=== PATIENT | female | born 1955 | race Caucasian/White ===

== ENCOUNTER → 2018-08-20 14:09 | Outpatient (CLI) | payer OTHER, SELFPAY ==
[2017-04-01 22:01] VITALS: BMI 29.9
--- NOTE | 2018-08-20 14:18 | RAD_ITS ---
STUDY: X-RAY - THORACIC SPINE REASON FOR EXAM: Female, 63 years old. No known recent injury. Chronic thoracic and lumbar pain. Recent worsening. TECHNIQUE: 3 view(s) of the thoracic spine were obtained. COMPARISON: None. FINDINGS: Normal kyphosis of the thoracic spine. There is no substantial scoliosis. There is demineralization of the thoracic spine with endplate spondylosis. There is multilevel disc space narrowing of the thoracic spine. There is no evidence of acute fracture or loss of vertebral axial height. The soft tissue structures are unremarkable. RAD/Thoracic Spine 2 Views IMPRESSION: Osteopenia and degenerative changes of the thoracic spine. Electronically Signed: Domenico Gordon DO at 20:13 EST Tel [phone], Service support ,
--- NOTE | 2018-08-20 14:25 | RAD_ITS ---
STUDY: X-RAY - LUMBAR SPINE REASON FOR EXAM: Female, 63 years old. Chronic thoracic and lumbar pain, recently worsening. TECHNIQUE: 3 view(s) of the lumbar spine were obtained. COMPARISON: Thoracic spine, August 20, 2018. FINDINGS: Normal lumbar lordosis. There is no substantial scoliosis. There is anterolisthesis of L4 on L5 of 5 mm. The alignment is otherwise preserved. There is multilevel endplate spondylosis of the lumbar vertebrae. There is multi-level degenerative disc disease with multi-level disc space narrowing. There is no evidence of acute fracture or loss of vertebral axial height. The soft tissue structures are unremarkable. RAD/Lumbar Spine 2 or 3 Views IMPRESSION: Degenerative changes of the lumbar spine. Electronically Signed: Domenico Gordon DO at 20:14 EST Tel [phone], Service support ,
== END ==
PROVIDERS: Referring Provider Anesthesiology Pain Medicine; Visit Provider Anesthesiology Pain Medicine
DX: M54.9 Dorsalgia, unspecified (principal)
CPT/HCPCS: 72070; 72100

== ENCOUNTER → 2018-10-02 16:04 | Outpatient (CLI) | payer OTHER, SELFPAY ==
--- NOTE | 2018-10-02 16:45 | MRI_ITS ---
STUDY: MRI LUMBAR SPINE WITHOUT CONTRAST REASON FOR EXAM: Female, 63 years old. Low back pain TECHNIQUE: Standardized fat and water weighted pulse sequences were obtained in the sagittal and axial planes. COMPARISON: X-ray 08/20/2018. FINDINGS: T12-L1: Normal endplates. Normal disc height, hydration and morphology. Normal bilateral facet joints. Normal central canal and bilateral lateral recesses. Normal bilateral intervertebral neural foramina. Normal lumbar lordosis. There is no substantial scoliosis. Normal conus medullaris that terminates at the L1 level. L1-2: Fatty endplate changes are noted. There is marked disc space narrowing. There is a 5 mm right paracentral disc or spondylotic protrusion measuring 5 mm. Alternatively, this may represent a small calcific fragment, less likely hemorrhage. This effaces the right lateral recess. Normal bilateral facet joints. Normal bilateral intervertebral neural foramina. L2-3: Normal endplates. Disc dehydration. There is a small right paracentral and inferior foraminal disc protrusion effacing the right lateral recess and inferior neural foramen. No evidence of foraminal stenosis. Normal bilateral facet joints. Normal central canal and bilateral lateral recesses. L3-4: Normal endplates. Disc dehydration. Mild facet hypertrophy. Normal central canal and bilateral lateral recesses. Normal bilateral intervertebral neural foramina. L4-5: Normal endplates. Disc dehydration and mild disc space narrowing. There is 3 mm anterolisthesis. No spondylolysis. There is moderate facet hypertrophy. There is mild bilateral foraminal encroachment due to spurring and facet hypertrophy. L5-S1: Normal endplates. Disc dehydration. There is a small, central disc protrusion touching the traversing S1 nerve roots. No canal stenosis. Normal bilateral facet joints. Normal bilateral lateral recesses. Normal bilateral intervertebral neural foramina. Normal visualized sacral ala. Normal visualized paraspinous soft tissue structures. MRI/Spine Lumbar (Routine) IMPRESSION: 1. L1-2 right paracentral spondylotic or disc protrusion, effacing the right lateral recess. 2. L2-3 disc protrusion effacing the right lateral recess and inferior neural foramen. 3. L5-S1 disc protrusion touching the traversing nerve roots. 4. Mild L4-5 anterolisthesis. 5. Mild L4-5 foraminal encroachment. Electronically Signed: Milagros Dominguez MD at 21:27 EDT Tel , Service support ,
== END ==
PROVIDERS: Family Provider Family Medicine; PCP Family Medicine; Referring Provider Anesthesiology Pain Medicine; Visit Provider Anesthesiology Pain Medicine
DX: M54.9 Dorsalgia, unspecified (principal); M79.606 Pain in leg, unspecified
CPT/HCPCS: 72148

== ENCOUNTER → 2019-07-29 15:39 | Outpatient (CLI) | payer OTHER, SELFPAY ==
[2019-07-29 17:50] LABS: Amphetamine Urine VISTA NEGATIVE (<1000 ng/mL); Barbiturate Urine VISTA NEGATIVE (< 200 ng/mL); Benzodiazepine Urine VISTA NEGATIVE (< 200 ng/mL); Cocaine Urine VISTA NEGATIVE (< 300 ng/mL); Ecstacy Urine VISTA POSITIVE (< 500 ng/mL); Methadone Urine VISTA NEGATIVE (< 300 ng/mL); PCP Urine VISTA NEGATIVE (< 25 ng/mL); THC Urine VISTA NEGATIVE (< 50 ng/mL); Vista UDS pH Range 6
== END ==
PROVIDERS: Family Provider Family Medicine; PCP Family Medicine; Referring Provider Anesthesiology Pain Medicine; Visit Provider Anesthesiology Pain Medicine
DX: F11.20 Opioid dependence, uncomplicated (principal)
CPT/HCPCS: 80307

== ENCOUNTER → 2020-09-02 13:08 | Outpatient (CLI) | payer OTHER, SELFPAY ==
[2017-04-01 22:01] VITALS: BMI 29.9
[2020-09-02 14:31] LABS: Vista UDS pH Range 6
[2020-09-02 14:39] LABS: Amphetamine Urine VISTA NEGATIVE (<1000 ng/mL); Barbiturate Urine VISTA NEGATIVE (< 200 ng/mL); Benzodiazepine Urine VISTA NEGATIVE (< 200 ng/mL); Cocaine Urine VISTA NEGATIVE (< 300 ng/mL); Ecstacy Urine VISTA POSITIVE (< 500 ng/mL); Methadone Urine VISTA NEGATIVE (< 300 ng/mL); PCP Urine VISTA NEGATIVE (< 25 ng/mL); THC Urine VISTA NEGATIVE (< 50 ng/mL)
== END ==
LOC: LABSPEC 13:10 → LAB 13:11
PROVIDERS: PCP Family Medicine; Referring Provider Anesthesiology Pain Medicine; Visit Provider Anesthesiology Pain Medicine
DX: F11.20 Opioid dependence, uncomplicated (principal)
CPT/HCPCS: 80307

== ENCOUNTER 2020-09-24 10:42 | Outpatient (RCR) | payer OTHER, SELFPAY ==
[2017-04-01 22:01] VITALS: BMI 29.9
[2020-09-24] MEDS: COVID-19 VACC, MRNA(PFIZER)/PF 30 MCG/0.3 ML SYRINGE IM (18:12)
[2020-10-15] MEDS: COVID-19 VACC, MRNA(PFIZER)/PF 30 MCG/0.3 ML SYRINGE IM (18:06)
== END 2020-12-22 23:59 ==
LOC: IMMUN 10:42
PROVIDERS: Visit Provider Family Medicine
DX: Z23 Encounter for immunization (principal)
CPT/HCPCS: 0001A; 0002A; 91300

== ENCOUNTER 2021-09-23 12:07 | Outpatient (CLI) | payer MEDICARE, SELFPAY ==
[2021-09-23 13:44] LABS: Amphetamine Urine VISTA NEGATIVE (<1000 ng/mL); Barbiturate Urine VISTA NEGATIVE (< 200 ng/mL); Benzodiazepine Urine VISTA NEGATIVE (< 200 ng/mL); Cocaine Urine VISTA NEGATIVE (< 300 ng/mL); Ecstacy Urine VISTA POSITIVE (< 500 ng/mL); Methadone Urine VISTA NEGATIVE (< 300 ng/mL); PCP Urine VISTA NEGATIVE (< 25 ng/mL); THC Urine VISTA NEGATIVE (< 50 ng/mL); Vista UDS pH Range 5
== END 2021-09-23 23:59 | disposition home or self-care (01) ==
PROVIDERS: Referring Provider Anesthesiology Pain Medicine; Visit Provider Anesthesiology Pain Medicine
DX: F11.20 Opioid dependence, uncomplicated (principal)
CPT/HCPCS: 80307

== ENCOUNTER → 2022-06-02 | Outpatient (CLI) | payer MEDICARE, SELFPAY ==
--- NOTE | 2022-06-02 12:40 | RAD_ITS ---
INDICATION: M51.37 EXAMINATION/TECHNIQUE: X-RAY - XR Spine Lumbar 2 or 3 Views COMPARISON: 08/20/2018 FINDINGS: VERTEBRAE: Preserved vertebral body height. No acute fracture. Stable 6 mm spondylolisthesis at L4-5. Preservation of the normal lumbar lordosis. DISCS: Stable degenerative disc space narrowing L1-2 and L4-5. INCLUDED ABDOMEN: Included bowel gas pattern is non-obstructive. RAD/Lumbar Spine 2 or 3 Views IMPRESSION: Stable degenerative disc disease. No acute bony abnormality. Electronically Signed: Brodie Lam MD at 19:27 EST ,
== END | disposition home or self-care (01) ==
LOC: RAD 12:36
PROVIDERS: Referring Provider Anesthesiology Pain Medicine; Visit Provider Anesthesiology Pain Medicine
DX: M51.37 Other intervertebral disc degeneration, lumbosacral region (principal)
CPT/HCPCS: 72100

== ENCOUNTER → 2022-10-03 | Outpatient (CLI) | payer MEDICARE, SELFPAY ==
--- NOTE | 2022-10-03 12:11 | MRI_ITS ---
PROCEDURE: LUMBAR SPINE MRI WITHOUT CONTRAST COMPARISONS: 10/02/2018 CLINICAL INDICATION: RADICULOPATHY LEFT TECHNIQUE: Noncontrast lumbosacral spine MRI study was performed multiple sequences in sagittal and axial planes. FINDINGS: Slight L4-5 anterolisthesis is unchanged. Alignment of the lumbosacral spine is otherwise normal. Normal vertebral marrow signal. Normal partially visualized sacroiliac joints. The conus medullaris terminates at L1-2. No abnormal signal within the visualized cord. L1-L2: Normal disc height and morphology. Normal spinal canal and neuroforamina. L2-L3: Normal disc height and morphology. Normal spinal canal and neuroforamina. L3-L4: Disc bulge. Mild bilateral neural foraminal stenosis. L4-L5: Normal disc height and morphology. Facet arthrosis with moderate right and mild left neural foraminal stenosis. Both traversing L5 nerve roots are crowded in the lateral recesses. L5-S1: Disc bulge Normal spinal canal and neuroforamina. Mild paraspinous muscle fatty infiltration. 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 Bilateral neural foraminal stenosis at L3-4 and L4-5. Electronically Signed: Kevin Cartwright MD at 16:17 EDT ,
== END | disposition home or self-care (01) ==
LOC: MRI 12:06
PROVIDERS: Referring Provider Anesthesiology Pain Medicine; Visit Provider Anesthesiology Pain Medicine
DX: M54.16 Radiculopathy, lumbar region (principal)
CPT/HCPCS: 72148

== ENCOUNTER → 2023-03-06 | Outpatient (CLI) | payer MEDICARE, SELFPAY ==
[2023-03-06 14:40] LABS: Amphetamine Urine VISTA NEGATIVE (<1000 ng/mL); Barbiturate Urine VISTA NEGATIVE (< 200 ng/mL); Benzodiazepine Urine VISTA NEGATIVE (< 200 ng/mL); Cocaine Urine VISTA NEGATIVE (< 300 ng/mL); Ecstacy Urine VISTA POSITIVE (< 500 ng/mL); Methadone Urine VISTA NEGATIVE (< 300 ng/mL); PCP Urine VISTA NEGATIVE (< 25 ng/mL); THC Urine VISTA NEGATIVE (< 50 ng/mL); Vista UDS pH Range 5
== END | disposition home or self-care (01) ==
PROVIDERS: Referring Provider Anesthesiology Pain Medicine; Visit Provider Anesthesiology Pain Medicine
DX: F11.20 Opioid dependence, uncomplicated (principal)
CPT/HCPCS: 80307

== ENCOUNTER → 2023-12-28 | Outpatient (CLI) | payer MEDICARE, SELFPAY ==
[2023-12-28 16:37] LABS: Amphetamine Urine VISTA NEGATIVE (<1000 ng/mL); Barbiturate Urine VISTA NEGATIVE (< 200 ng/mL); Benzodiazepine Urine VISTA NEGATIVE (< 200 ng/mL); Cocaine Urine VISTA NEGATIVE (< 300 ng/mL); Ecstacy Urine VISTA POSITIVE (< 500 ng/mL); Methadone Urine VISTA NEGATIVE (< 300 ng/mL); PCP Urine VISTA NEGATIVE (< 25 ng/mL); THC Urine VISTA NEGATIVE (< 50 ng/mL); Vista UDS pH Range 6
== END | disposition home or self-care (01) ==
LOC: OLS.ABSOLU 12:50 → LAB 12-29 09:59
PROVIDERS: PCP Anesthesiology Pain Medicine; Visit Provider Anesthesiology Pain Medicine
DX: F11.20 Opioid dependence, uncomplicated (principal)
CPT/HCPCS: 80307

== ENCOUNTER 2024-07-11 12:51 | Emergency (ER) | payer MEDICARE, SELFPAY ==
[2024-07-11 12:56] VITALS: BP 139/98; PULSE 86; RESP 16; TEMP 36.7; O2SAT 95
[2024-07-11 14:52] VITALS: PULSE 75; RESP 18; O2SAT 92
--- NOTE | 2024-07-11 15:09 | EDS_ITS ---
HPI History of Present Illness Chief Complaint: Weakness Informant: patient Narrative Narrative: Increasing fatigue, decreased appetite, myalgias for past 5 days. No cough. No fevers or chills. No vomiting diarrhea. No urinary symptoms. Patient on medications for back pain along with depression medications. No new medications were started. No sick contacts. She states she has been sleeping 21 hours a day. Patient came in by private vehicle.Patient is drinking fluids at home. [facility] Medical History Appendicitis Home Medications ?Medication ?Instructions ?Recorded ?Last Taken ?Type duloxetine 30 mg capsule,delayed 30 mg PO DAILY 01/05/23 Unknown History release (Cymbalta) oxycodone myristate 18 mg capsule 18 mg PO BID 01/05/23 Unknown History sprinkle extended release 12hr(DON'T CRUSH) (Xtampza ER) tizanidine 4 mg tablet 4 mg PO HS 01/05/23 Unknown History tramadol 100 mg tablet 100 mg PO DAILY PRN 01/05/23 Unknown History levothyroxine 125 mcg tablet 125 mcg PO DAILY #30 tabs 07/11/24 Unknown Rx (Synthroid) Allergy/AdvReac Type Severity Reaction Status Date / Time erythromycin base Allergy Hives Verified 07/11/24 12:56 Family History Grandmother Kidney disease Other Cancer Surgical History History of appendectomy History of section Social History Smoking Status: Current every day smoker tobacco type: cigarettes alcohol intake: never what type of physical activity do you participate in: none ROS ROS ED Constitutional Constitutional ED: Reports other Details: Fatigue ; Denies chills, fever(s) or sweats ENT ENT ED: Denies sore throat Cardiovascular Cardiovascular: Denies chest pain, leg edema, palpitations or racing heartbeat Respiratory/Chest Respiratory/Chest: Denies cough, dyspnea or dyspnea on exertion Gastrointestinal Gastrointestinal: Denies abdominal pain, diarrhea, nausea or vomiting Genitourinary Genitourinary ED: Denies dysuria, hematuria or urinary frequency Musculoskeletal Musculoskeletal: Reports myalgias; Denies back pain, extremity pain or neck pain Integumentary Denies rash or wounds Neurologic Neurologic: Denies headache(s), paresthesias or weakness EXAM Physical Exam Const Vital Signs: 07/11/24 12:56 07/11/24 14:12 07/11/24 14:52 Temperature 98.1 F Temperature Source Oral Pulse Rate 86 75 Respiratory Rate 16 18 Respiratory Effort Normal Non-Labored Respiratory Pattern Normal Blood Pressure 139/98 H Blood Pressure Mean 111 Pulse Ox 95 92 Oxygen Delivery Method Room Air Room Air 07/11/24 16:00 07/11/24 18:00 07/11/24 18:39 Temperature Temperature Source Pulse Rate 74 75 73 Respiratory Rate 18 18 Respiratory Effort Respiratory Pattern Blood Pressure Blood Pressure Mean Pulse Ox 92 92 95 Oxygen Delivery Method Room Air Room Air Positive well nourished and well developed General Appearance ED: well developed and NAD HEENT Reports dry mucous membranes normocephalic and atraumatic Mouth ED: Yes dry mucous membranes Mouth: dry mucous membranes Eyes General Eye ED: Yes normal appearance of both eyes Neck full ROM Chest Wall Chest: Negative for tenderness Resp normal respiratory effort and normal air movement Effort and Inspection: symmetric chest movement; Negative for respiratory distress Cardio regular rate, regular rhythm and no murmurs Peripheral Pulses: pulses 2+ throughout GI normal to inspection, nondistended, normoactive bowel sounds and non-tender Palpation: Negative for guarding or rebound tenderness present Extremity normal to inspection General Extremety ED: Negative for edema or tenderness General Extremity: Negative for edema Neuro oriented x3 and no sensory deficits noted Sensorium / Orientation: awake and alert Skin no rashes or lesions noted and no wounds MDM MDM MDM Narrative Medical decision making narrative: Interventions / MDM: Differential diagnosis: Hypothyroidism, fatigue, weakness Diagnosis considered but do not suspect: UTI with culture pending My EKG interpretation: N/A Imaging independently reviewed and interpreted by myself: N/A External documents reviewed: N/A Test considered but not ordered:N/A ED course: Vital signs stable. Reports increased fatigue myalgias. Will check basic labs thyroid screening UA. COVID flu and RSV ordered. COVID, flu, RSV negative. Hemoglobin 2.9 white count 8.5. Creatinine 1.4 no old for comparison she is tolerating oral fluids. TSH returned at 141. Sent for free T4 levels. Urine noted leukocytes 25, 2+ bacteria she is asymptomatic and sent for urine culture. 181: T4 returned low at 0.1. Discussed with patient slightly hypothyroid, her symptoms are last week. She started on Synthroid 125 mcg weight-based. First dose in the ED. She does not have a PCP. She is given a month supply, discussed need to follow-up with primary care doctor recheck labs possible increasing her medications. She understands and agrees with plan. Discussed if urine culture returns positive should be contacted for treatment. All questions were answered. Re-evaluation: stable Disposition discussed with patient/family/significant other: Patient Case discussed with consulting clinician: N/A This note was generated with [employer] dictation software. It may contain incorrect words, spelling, and punctuation that were not noted in checking the note before signing. Lab Data Attestation: I reviewed the patient's lab results. Labs: Laboratory Results - last 24 hr 07/11/24 07/11/24 15:02 15:25 WBC 8.5 RBC 4.57 Hgb 13.9 Hct 42.9 MCV 93.9 MCH 30.4 MCHC 32.4 RDW Std Deviation 52.8 H RDW Coeff of [place] 15.2 H Plt Count 221 MPV 10.7 Immature Gran % (Auto) 0.400 Neut % (Auto) 70.2 H Lymph % (Auto) 23.0 [place] % (Auto) 3.9 Eos % (Auto) 1.8 Baso % (Auto) 0.7 Absolute Neuts (auto) 6.0 Absolute Lymphs (auto) 1.95 Nucleated RBC % 0 Sodium 139 Potassium 3.4 L Chloride 104 Carbon Dioxide 31.0 Anion Gap 4 L BUN 12 Creatinine 1.40 H Est GFR (MDRD) Af Amer 48 L Est GFR (MDRD) Non-Af 40 L BUN/Creatinine Ratio 8.6 L Glucose 84 Calcium 9.2 TSH 141.000 H Free T4 0.10 L Urine Color Yellow Urine Clarity Cloudy Urine pH 6.0 Ur Specific [place] 1.020 Urine Protein 30 H Urine Glucose (UA) Normal Urine Ketones 150 A* Urine Occult Blood Negative Urine Nitrite Negative Urine Bilirubin 1 H Urine Urobilinogen 4 H Ur Leukocyte Esterase 25 H Urine RBC 0 SEEN Urine WBC 0-5 SEEN Ur Squamous Epith Cells 0-5 SEEN Ur Renal Epithelial Cell 0-5 SEEN Urine Bacteria 2+ Urine Mucus 0 SEEN Discharge Plan Triage Chief Complaint: Weakness ED Provider: Rico Bernabe Dx/Rx/DC Orders Clinical Impression: Hypothyroidism, Weakness, Fatigue Instructions: ED Hypothyroidism Prescriptions: New levothyroxine [Synthroid] 125 mcg tablet 125 mcg PO DAILY Qty: 30 0RF No Action tizanidine 4 mg tablet 4 mg PO HS tramadol 100 mg tablet 100 mg PO DAILY PRN Xtampza ER 18 mg cap,sprinkl,ER12hr(DONT CRUSH) 18 mg PO BID Rx Instructions: must administer with a meal/food duloxetine [Cymbalta] 30 mg capsule,delayed release(DR/EC) 30 mg PO DAILY Primary Care Provider: Mainor Wang Referrals: Mainor Wang MD [Primary Care Provider] - Sayra Hartley MD [Med Staff - [employer]] - 1-2 Weeks Activity Restrictions/Additional Instructions: TSH 141, T4 level at 0.10. Take thyroid medicine as prescribed. You need to follow-up with a primary care doctor to continue medication possibly increase medication and this. You will be contacted your if your urine culture returns positive for antibiotics. Print Language: Ukrainian Disposition Disposition: Home, Self Care Discharge Date/Time: 07/11/24 18:40
[2024-07-11 15:31] LABS: Absolute Lymphocyte Count 1.95 X10^3/uL (0.83-4.51); Basophil# 0.06 X10^3/uL; Basophil% 0.7 % (0-1); Eosinophil# 0.15 X10^3/uL; Eosinophils% 1.8 % (0-5); Hematocrit 42.9 % (37-47); Hemoglobin 13.9 g/dL (12.0-15.0); Lymphocyte # 1.95 X10^3/ul (0.83-4.51); Mean Corp Hgb Conc 32.4 g/dL (32-36); Mean Corpuscular Hgb 30.4 pg (27.0-32.0); Mean Corpuscular Volume 93.9 fL (81-99); Mean Platelet Vol. 10.7 fl (6.2-12.0); Monocyte# 0.33 X10^3/uL; Monocyte% 3.9 % (0-10); NRBC Flagged by Analyzer 0 % (0-5); Neutrophil # 5.95 X10^3/uL (2.7-7.7); Neutrophil % 70.2 % (47-70); Platelet Count 221 K/mm3 (150-450); RBC Distribution Width CV 15.2 % (11.6-14.6); RBC Distribution Width SD 52.8 fl (35.1-43.9); Red Blood Count 4.57 M/mm3 (4.2-5.4); White Blood Count 8.5 K/mm3 (4.4-11.0)
[2024-07-11 15:39] LABS: Mucous, Urine 0 SEEN /hpf (<or=2+); Red Blood Cells-Urine 0 SEEN /hpf (0-5)
[2024-07-11 15:45] LABS: Color, Urine Yellow (Yellow); Glucose, Dipstick Normal (Normal); Leukocyte Esterase-Dipstick 25 /ul (Negative); Nitrite-Dipstick Negative (Negative); Occult Blood-Urine Negative /ul (Negative); Protein-Dipstick 30 mg/dl (Negative); Urine Clarity Cloudy (Clear); Urine Urobilinogen 4 mg/dl (Normal)
[2024-07-11 16:00] VITALS: PULSE 74; RESP 18; O2SAT 92
[2024-07-11 16:05] LABS: Urine Bilirubin Dipstick 1 mg/dL (Negative)
[2024-07-11 16:07] LABS: Ketone-Dipstick 150 mg/dl (Negative)
[2024-07-11 16:09] LABS: White Blood Cells 0-5 SEEN /hpf (0-5)
[2024-07-11 16:10] LABS: Bacteria 2+ /hpf (None Seen); Renal Epithelial Cells 0-5 SEEN /hpf (0-5); Squamous Epithelial Cells - UA 0-5 SEEN /hpf (5-10)
[2024-07-11 16:35] LABS: Anion Gap 4 (5-15); BUN 12 mg/dL (7-18); BUN/Creat Ratio 8.6 RATIO (10-20); Calcium,Total 9.2 mg/dL (8.5-10.1); Chloride 104 mmol/L (98-107); EST Glomerular Filtration Rate 40 mL/min (>60); Est Glom Filt Rate - Afr Amer 48 mL/min (>60); Glucose 84 mg/dL (74-106); Potassium 3.4 mmol/L (3.5-5.1); Sodium Level 139 mmol/L (136-145)
[2024-07-11 17:28] VITALS: BMI 27.4
[2024-07-11 18:00] VITALS: PULSE 75; O2SAT 92
[2024-07-11] MEDS: Levothyroxine 125 MCG Tablet PO (18:35)
[2024-07-11 18:39] VITALS: PULSE 73; RESP 18; O2SAT 95
== END 2024-07-11 18:40 | disposition home or self-care (01) ==
PROVIDERS: Emergency Provider Emergency Medicine; PCP Anesthesiology Pain Medicine; Visit Provider Emergency Medicine
DX: E03.9 Hypothyroidism, unspecified (principal); R53.1 Weakness; M54.9 Dorsalgia, unspecified; M79.10 Myalgia, unspecified site; F32.A Depression, unspecified; Z79.890 Hormone replacement therapy; Z79.899 Other long term (current) drug therapy; F17.210 Nicotine dependence, cigarettes, uncomplicated; R53.83 Other fatigue
CPT/HCPCS: 80048; 81001; 84439; 84443; 85025; 87077; 87086; 87088; 87631; 99285

== ENCOUNTER → 2024-07-12 | Outpatient (CLI) | payer MEDICARE, SELFPAY ==
[2024-07-12 15:48] LABS: Amphetamine Urine VISTA NEGATIVE (<1000 ng/mL); Barbiturate Urine VISTA NEGATIVE (< 200 ng/mL); Benzodiazepine Urine VISTA NEGATIVE (< 200 ng/mL); Cocaine Urine VISTA NEGATIVE (< 300 ng/mL); Ecstacy Urine VISTA POSITIVE (< 500 ng/mL); Methadone Urine VISTA NEGATIVE (< 300 ng/mL); PCP Urine VISTA NEGATIVE (< 25 ng/mL); THC Urine VISTA NEGATIVE (< 50 ng/mL); Vista UDS pH Range 5
== END | disposition home or self-care (01) ==
LOC: LAB 14:36
PROVIDERS: PCP Anesthesiology Pain Medicine; Referring Provider Anesthesiology Pain Medicine; Visit Provider Anesthesiology Pain Medicine
DX: F11.20 Opioid dependence, uncomplicated (principal)
CPT/HCPCS: 80307

== ENCOUNTER → 2025-01-01 | Outpatient (CLI) | payer MEDICARE, SELFPAY ==
[2025-01-01 18:56] LABS: Amphetamine Urine PRESUMPTIVE POSITIVE (<1000 ng/mL); Barbiturate Urine NEGATIVE (< 200 ng/mL); Benzodiazepine Urine NEGATIVE (< 200 ng/mL); Buprenorphine Urine NEGATIVE (< 200 ng/mL); Cocaine Urine NEGATIVE (< 300 ng/mL); Fentanyl, Urine NEGATIVE; Methadone Urine NEGATIVE (< 300 ng/mL); Opiates Urine NEGATIVE (< 300 ng/mL); Oxycodone, Urine PRESUMPTIVE POSITIVE (< 100 ng/mL); PCP Urine NEGATIVE (< 25 ng/mL); THC Urine NEGATIVE (< 50 ng/mL)
== END | disposition home or self-care (01) ==
LOC: LAB 15:17
PROVIDERS: Referring Provider Anesthesiology Pain Medicine; Visit Provider Anesthesiology Pain Medicine
DX: F11.20 Opioid dependence, uncomplicated (principal)
CPT/HCPCS: 80307